=== PATIENT | male | born 1980 | race Caucasian/White ===

== ENCOUNTER → 2016-12-30 | Outpatient (CLI) | payer BC ==
--- NOTE | 2016-12-30 16:48 | CT ---
EXAMINATION TYPE: CT soft tissue neck w con DATE OF EXAM: 12/30/2016 7:36 AM COMPARISON: NONE HISTORY: Laryngo- reflux and hoarseness CT DLP: 354.90 mGycm CONTRAST: Patient injected with 100 ml mL of Omnipaque 300. TECHNIQUE: Axial images at 3 mm thick sections. Reconstructed images in the coronal plane and sagitt al plane are reviewed. FINDINGS: Limited CT sections are obtained the lung apices. The lung apices appear clear. CT neck: The torus tubarius and fossa of Rosenmuller are normal. Claim Analyst spaces are normal. Para nasal sinuses and mastoid air cells are clear. Parotid glands appear normal and symmetrical. Submandibular glands, are normal. Parapharyngeal spac es are normal. No suspicious adenopathy is evident. There is a borderline sized right jugulodigastri c lymph node measuring 1.0 cm which is at the upper limits of normal for size. The hypopharynx appears within normal limits. Vocal cord level appear symmetrical. Thyroid as visualized is normal. Osseous structures are normal. IMPRESSIONS: 1. Normal CT neck.
== END | disposition home or self-care (01) ==
LOC: RADCTMAIN 07:02
PROVIDERS: ATTEND Otolaryngology
DX: R49.0 Dysphonia (principal)
CPT/HCPCS: 70491; Q9967

== ENCOUNTER 2022-04-19 05:59 | Day surgery (SDC) | payer BC, MEDICAID ==
[2022-04-14 12:56] VITALS: BMI 31.0
[~2022-04-19 05:59] MED LIST: LACTATED RINGERS 1,000 ML IV SCH; LIDOCAINE 1% (10MG/ML) FOR IV START INTRADERMA PRN
[2022-04-19 06:26] VITALS: RESP 16; TEMP 97
[2022-04-19] MEDS ORDERED: LIDOCAINE 2% INJ 20 MG/ML (2 ML VIAL) ONE (07:04)
[2022-04-19] MEDS ORDERED: PROPOFOL 10 MG/ML 20 ML VIAL IV ONE (07:04)
--- NOTE | 2022-04-19 07:24 | P.PCN ---
Date of Procedure: 04/19/22 Procedure(s) Performed: Brief history: Patient is a pleasant. 41-year-old white male scheduled for an elective upper endoscopy as well as colonoscopy as a part of evaluation of GERD and change in bowel habits Procedure performed: Esophagogastroduodenoscopy with biopsy Colonoscopy with snare polypectomy Preoperative diagnosis: GERD Change in bowel habits Anesthesia: MAC Procedure: After informed consent was obtained from the patient was brought into the endoscopy unit and IV sedation was administered by anesthesia under continuous monitoring. Initially upper endoscopy was done. The Olympus GF 160 video endoscope was inserted inserted into the mouth and esophagus intubated without any difficulty and was gradually advanced into the stomach and duodenum and carefully examined. The bulb and second part of the duodenum appeared normal. The scope was then withdrawn into the stomach adequately insufflated with air and upon careful examination the antrum had mild antral gastritis and biopsies were done from this area. The body, cardia and fundus appeared normal. The scope was then withdrawn into the esophagus. The GE junction was located at 40 cm to the incisors. Small sliding type hiatal hernia noted. It appeared regular with no erythema erosions or ulcerations. Rest of the esophagus appeared normal. Patient tolerated the procedure well. At this time the patient continued to remain sedation. Initial digital rectal examination was normal. Olympus CF 160 video colonoscope was then inserted into the rectum and gradually advanced to the cecum without any difficulty. Careful examination was performed as the scope was gradually being withdrawn. The prep was excellent. The cecum, ascending colon, transverse colon appeared normal. The descending colon there was a 7 mm polyp removed by snare polypectomy. Rest of the, descending colon, sigmoid colon and rectum appeared normal. Retroflexion was performed in the rectum and no lesions were noted. Patient tolerated the procedure well. Impression: 1. Upper endoscopy revealed small hiatal hernia and mild antral gastritis 2. Colonoscopy revealed a 7 mm descending colon polyp status post polypectomy Recommendations: Findings of this examination were discussed with the patient as well as patient family. He was advised to follow with the biopsy results. Continue with omeprazole 20 mg daily and Carafate as needed and follow antireflux measures. If the biopsy the colon polyp reveals adenoma he can have a repeat colonoscopy in 5 years.
[2022-04-19 07:44] VITALS: BP 120/67; PULSE 75
== END 2022-04-19 08:08 | disposition home or self-care (01) ==
LOC: ORWHC2ENDO 05:59
PROVIDERS: ATTEND Internal Medicine Gastroenterology
DX: K63.5 Polyp of colon (principal); K29.70 Gastritis, unspecified, without bleeding; K44.9 Diaphragmatic hernia without obstruction or gangrene; K21.9 Gastro-esophageal reflux disease without esophagitis; F17.200 Nicotine dependence, unspecified, uncomplicated; Z87.442 Personal history of urinary calculi; G43.909 Migraine, unspecified, not intractable, without status migrainosus; M19.90 Unspecified osteoarthritis, unspecified site; Z79.899 Other long term (current) drug therapy; Z80.9 Family history of malignant neoplasm, unspecified
CPT/HCPCS: 88305; 45385; 43239; J2704; J2001